=== PATIENT | female | born 1950 | race Caucasian/White ===

== ENCOUNTER → 2016-10-11 | Outpatient (CLI) | payer MEDICARE, OTHER ==
--- NOTE | 2016-10-11 13:25 | US ---
EXAMINATION TYPE: US carotid duplex BILAT DATE OF EXAM: 10/11/2016 COMPARISON: NONE CLINICAL HISTORY: Tinnitus, bilateral H93.13. EXAM MEASUREMENTS: RIGHT: Peak Systolic Velocity (PSV) cm/sec ----- Right CCA: 80.9 ----- Right ICA: 73.1 ----- Right ECA: 89.8 ICA/CCA ratio: 0.9 RIGHT: End Diastole cm/sec ----- Right CCA: 20.4 ----- Right ICA: 73.1 ----- Right ECA: 89.8 LEFT: Peak Systolic Velocity (PSV) cm/sec ----- Left CCA: 85.3 ----- Left ICA: 82.5 ----- Left ECA: 54.3 ICA/CCA ratio: 1.0 LEFT: End Diastole cm/sec ----- Left CCA: 24.8 ----- Left ICA: 31.4 ----- Left ECA: 54.3 VERTEBRALS (direction of flow): Right Vertebral: Antegrade Left Vertebral: Antegrade High bifurcation on right, tortuous vessels on left, technically difficult study. Mild plaque with no significant stenosis seen. IMPRESSION: Minimal suazo scale plaquing with no significant hemodynamic stenosis within either carot id system.
== END | disposition home or self-care (01) ==
LOC: RADUSWWP 12:00
PROVIDERS: ATTEND Family Medicine
DX: I65.23 Occlusion and stenosis of bilateral carotid arteries (principal)
CPT/HCPCS: 93880

== ENCOUNTER → 2016-10-19 | Outpatient (CLI) | payer MEDICARE, OTHER ==
--- NOTE | 2016-10-19 11:05 | MM ---
Reason for exam: screening (asymptomatic). Baseline mammogram. History: Patient is postmenopausal and had first child at age 32. Excisional biopsy of the right breast. Physical Findings: Nurse did not find any significant physical abnormalities on exam. MG 3D Screening Mammo W/Cad Bilateral CC and MLO view(s) were taken. There are scattered fibroglandular densities. There is a 5mm mass upper outer quadrant in the right breast. Ultrasound subsequently performed. These results were verbally communicated with the patient and result sheet given to the patient on 10/19/16. ASSESSMENT: Incomplete: need additional imaging evaluation, BI-RAD 0 RECOMMENDATION: Ultrasound of the right breast. (upper outer quadrant)
--- NOTE | 2016-10-19 11:07 | USB ---
Reason for exam: additional evaluation requested from abnormal screening. History: Patient is postmenopausal and had first child at age 32. Excisional biopsy of the right breast. US Breast Limited RT Right breast ultrasound demonstrates a 5 x 4 x 5mm oval, cystic lesion at 10 o'clock, 3cm from nipple. Corresponding to mammographic findings. These results were verbally communicated with the patient and result sheet given to the patient on 10/19/16. ASSESSMENT: Benign, BI-RAD 2 RECOMMENDATION: Return to routine screening mammogram schedule for both breasts.
== END | disposition home or self-care (01) ==
LOC: RADMAMWWP 09:35
PROVIDERS: ATTEND Family Medicine
DX: Z12.31 Encounter for screening mammogram for malignant neoplasm of breast (principal); R92.8 Other abnormal and inconclusive findings on diagnostic imaging of breast
CPT/HCPCS: 77063; 76642; G0202

== ENCOUNTER 2021-11-11 12:01 | Day surgery (SDC) | payer MEDICARE, OTHER ==
[~2021-11-11 12:01] MED LIST: LACTATED RINGERS 1,000 ML IV SCH; LIDOCAINE 1% (10MG/ML) FOR IV START INTRADERMA PRN
[2021-11-11 13:31] VITALS: TEMP 97.3
[2021-11-11] MEDS ORDERED: MIDAZOLAM 2 MG/2 ML VIAL ONE (14:21)
[2021-11-11] MEDS ORDERED: LIDOCAINE 2% INJ 20 MG/ML (2 ML VIAL) ONE (14:21)
[2021-11-11] MEDS ORDERED: PROPOFOL 10 MG/ML 20 ML VIAL IV ONE (14:21)
[2021-11-11] MEDS ORDERED: fentaNYL (PF) 50 MCG/ML 2 ML AMP ONE (14:21)
--- NOTE | 2021-11-11 14:49 | P.PCN ---
Date of Procedure: 11/11/21 Procedure(s) Performed: BRIEF HISTORY: Patient is a 71-year-old, pleasant, white female scheduled for an upper endoscopy as a part of evaluation of long-standing history of GERD and intermittent dysphagia to solids For the last 10 years duration. She has these episodes once or twice a week. She had an episode of acute food impaction a month ago that lasted for about 4 hours and spontaneously resolved. She is hence scheduled for an upper endoscopy with possible dilation today.. Continue on Protonix 40 mg daily. PROCEDURE PERFORMED: Esophagogastroduodenoscopy with biopsy and dilation . PREOPERATIVE DIAGNOSIS: Long-standing history of GERD and intermittent dysphagia to solids. IV sedation per anesthesia. PROCEDURE: After informed consent was obtained, the patient was brought into the endoscopy unit. IV sedation was administered by Anesthesia under continuous monitoring. Initially the Olympus GIF-140 video endoscope was inserted into the mouth. Esophagus intubated without any difficulty. It was gradually advanced into the stomach and duodenum and carefully examined. The bulb and the second part of the duodenum appeared normal. The scope at this time was withdrawn to the stomach, adequately insufflated with air, and upon careful examination, mucosa of the antrum, body, cardia and the fundus appeared normal. The scope was then withdrawn into the esophagus. The GE junction was located at 41 cm from the incisors. There was a distal esophageal stricture noted at the GE junction that did not impede the passage of the scope. The rest of esophagus had thickened mucosal folds with superficial mucosal rings suspicious for years of age esophagitis. At this time I proceeded with balloon dilation of the distal esophageal stricture with an 18 mm TTS balloon for 30 seconds. There was a mucosal tear with brisk oozing identified and hence further dilation was not performed. Biopsies were done from the mid and distal esophagus to evaluate for years of age esophagitis. The proximal esophagus appeared normal and the patient tolerated the procedure well. IMPRESSION: 1. Distal esophageal stricture status post balloon dilation using 18 mm TTS balloon as described above 2. Thickened esophageal folds with superficial mucosal rings noted in the mid and distal esophagus suspicious for years of age esophagitis status post multiple biopsies RECOMMENDATIONS: The findings of this examination were discussed with the patient as well as her family. She was advised to be on a clear liquid diet today. She will continue with Protonix 40 mg daily and she will be seen in office in 2-3 weeks.
[2021-11-11 15:07] VITALS: BP 123/72; PULSE 80; RESP 15
== END 2021-11-11 15:34 | disposition home or self-care (01) ==
LOC: ORWHC2ENDO 12:01
PROVIDERS: ATTEND Internal Medicine Gastroenterology
DX: K22.2 Esophageal obstruction (principal); K21.00 Gastro-esophageal reflux disease with esophagitis, without bleeding; Z88.1 Allergy status to other antibiotic agents; Z79.899 Other long term (current) drug therapy
CPT/HCPCS: 88305; 43239; 43249; J2250; J3010; J2704; J2001; C1726

== ENCOUNTER → 2024-05-08 | Outpatient (CLI) | payer MEDICARE, OTHER ==
--- NOTE | 2024-05-09 07:19 | MM ---
Reason for Exam: Screening (asymptomatic). Last mammogram was performed 7 year(s) and 7 month(s) ago. Patient History: Menarche at age 13. First Full-Term at age 32. Late child-bearing (after 30). Postmenopausal. Excisional Biopsy on the Right side. Risk Values: Mulu 5 year model risk: 2.9%. NCI Lifetime model risk: 6.6%. Prior Study Comparison: 10/19/2016 Bilateral Screening Mammogram, [facility]. Tissue Density: There are scattered areas of fibroglandular density. Findings: Analyzed By CAD. Benign-appearing right axillary lymph nodes are redemonstrated. There is no suspicious new group of microcalcifications or new suspicious mass in either breast. Overall Assessment: Negative, BI-RAD 1 Management: Screening Mammogram of both breasts in 1 year. . Patient should continue monthly self-breast exams. A clinical breast exam by your physician is recommended on an annual basis. This exam should not preclude additional follow-up of suspicious palpable abnormalities. Note on Mulu scores and lifetime risk: 1. A Mulu score greater than 3% is considered moderate risk. If this is the case, consider specialist referral to assess eligibility for a risk reducing agent. 2. If overall lifetime risk for the development of breast cancer is 20% or higher, the patient may qualify for future screening with alternating mammogram and breast MRI. [facility], , 05/09/2024 7:16 AM. Electronically signed and approved by: Rafita Miranda M.D.
== END | disposition home or self-care (01) ==
LOC: RADMAMWWP 15:54
PROVIDERS: ATTEND Family Medicine
DX: Z12.31 Encounter for screening mammogram for malignant neoplasm of breast (principal); R92.323 Mammographic fibroglandular density, bilateral breasts; Z78.0 Asymptomatic menopausal state
CPT/HCPCS: 77063; 77067